=== PATIENT | male | born 1975 | race American Indian/Alaskan Native ===

== ENCOUNTER 2019-07-04 09:35 | Emergency (ER) | payer SELFPAY ==
[2019-07-04 13:29] LABS: Bilirubin,Urine NEG (Negative); Blood,Urine NEG (Negative); Color,Urine Yellow (Yellow); Protein,Urine <15 mg/dL mg/dL (Negative); RBC,Urine < 1.0 /HPF (0.0-6.0); Urobilinogen,Urine < 2.0 mg/dL (<2.0); WBC,Urine < 1.0 /HPF (0.0-6.0)
[2019-07-04 14:22] VITALS: BP 156/98
--- NOTE | 2019-07-04 14:30 | Emergency Department Report ---
ED Back Pain/Injury HPI - General Chief Complaint: High BP Stated Complaint: HBP/RT LEG PAIN Time Seen by Provider: 07/04/19 12:00 Source: patient Limitations: No Limitations - History of Present Illness Initial Comments: 44-year-old [place] male with known past medical history of hypertension presents emergency department complaining of right flank pain which radiates up and down the back for the last 1 week getting worse at sometimes and it fluctuates of fashion. Reports no fever, chills, sweats no hematuria or or dysuria but is very worried about a urinary tract infection. He also ran out of his lisinopril and 60 with a refill of his blood pressure medications. Reports no chest pain or palpitations no nausea or vomiting no headache or blurred blurred vision. He has no chronic history of-year-old urinary issues. He does have diabetes which he states is is doing well as he is compliant with the medication regimen. MD Complaint: back pain - Related Data Previous Rx's Medication Instructions Recorded Last Taken Type hydroCHLOROthiazide [HCTZ] 25 mg PO QDAY #30 tablet 06/18/13 Unknown Rx valACYclovir [Valtrex] 500 mg PO QDAY #30 tab 06/18/13 Unknown Rx Ibuprofen 800 mg PO Q6H PRN #12 tablet 03/04/18 Unknown Rx lisinopriL [Lisinopril] 20 mg PO DAILY #30 tablet 03/04/18 Unknown Rx methOCARBAMOL [Robaxin TAB] 500 mg PO BID #10 tab 03/04/18 Unknown Rx lisinopriL [Zestril TAB] 20 mg PO QDAY #30 tablet 07/04/19 Unknown Rx Allergies Allergy/AdvReac Type Severity Reaction Status Date / Time No Known Allergies Allergy Unverified 06/18/13 17:46 ED Review of Systems ROS: Stated complaint: HBP/RT LEG PAIN Other details as noted in HPI Comment: All other systems reviewed and negative ED Past Medical Hx - Past Medical History Previous Medical History?: Yes Hx Hypertension: Yes Hx Diabetes: Yes Additional medical history: shingles - Surgical History Past Surgical History?: Yes Additional Surgical History: R ankle surgery - Social History Smoking Status: Never Smoker Substance Use Type: None - Medications Home Medications: Home Medications Medication Instructions Recorded Confirmed Last Taken Type hydroCHLOROthiazide [HCTZ] 25 mg PO QDAY #30 tablet 01/30/14 Unknown Rx valACYclovir [Valtrex] 500 mg PO QDAY #30 tab 06/18/13 Unknown Rx Ibuprofen 800 mg PO Q6H PRN #12 tablet 03/04/18 Unknown Rx lisinopriL [Lisinopril] 20 mg PO DAILY #30 tablet 03/04/18 Unknown Rx methOCARBAMOL [Robaxin TAB] 500 mg PO BID #10 tab 03/04/18 Unknown Rx lisinopriL [Zestril TAB] 20 mg PO QDAY #30 tablet 07/04/19 Unknown Rx ED Physical Exam - General Limitations: No Limitations General appearance: alert, in no apparent distress - Head Head exam: Present: atraumatic, normocephalic - Eye Eye exam: Present: normal appearance - ENT ENT exam: Present: mucous membranes moist - Neck Neck exam: Present: normal inspection - Respiratory Respiratory exam: Present: normal lung sounds bilaterally. Absent: respiratory distress - Cardiovascular Cardiovascular Exam: Present: regular rate, normal rhythm. Absent: systolic murmur, diastolic murmur, rubs, gallop - GI/Abdominal GI/Abdominal exam: Present: soft, normal bowel sounds - Rectal Rectal exam: Present: deferred - Extremities Exam Extremities exam: Present: normal inspection - Back Exam Back exam: Present: normal inspection, paraspinal tenderness (To the right flank region where. No CVA tenderness is noted. Straight leg raise is normal normal Gene's test no symptoms when palpating the sacroiliac joint. Full range of motion with flexion extension and axial rotation of the spine) - Neurological Exam Neurological exam: Present: alert, oriented X3, CN II-XII intact, normal gait - Psychiatric Psychiatric exam: Present: normal affect, normal mood - Skin Skin exam: Present: warm, dry, intact, normal color. Absent: rash ED Course Vital Signs 07/04/19 07/04/19 09:38 14:21 Temperature 98.5 F Pulse Rate 68 60 Respiratory 16 20 Rate Blood Pressure 154/102 Blood Pressure 156/98 [Left] O2 Sat by Pulse 100 100 Oximetry Critical care attestation.: If time is entered above; I have spent that time in minutes in the direct care of this critically ill patient, excluding procedure time. ED Disposition Disposition: TO HOME OR SELFCARE Condition: Stable Instructions: Low Back Strain (ED), Hypertension (ED), Flank Pain (ED), Back Pain (ED) Additional Instructions: Urinalysis was normal showing no evidence of any infection or pathology. Please restart your blood pressure medication as we discussed and follow-up with your primary care provider if you are unable to follow-up with her primary care provider follow-up with the providers as listed is imperative that you maintain medication compliance for blood pressure control. Please seek refills in the future with your primary care provider or urgent care Prescriptions: lisinopriL [Zestril TAB] 20 mg PO QDAY #30 tablet Referrals: CRISTIANO VASQUES MD [Staff Physician] - 3-5 Days PRIMARY CARE, [Primary Care Provider] - 3-5 Days
== END 2019-07-04 14:52 | disposition home or self-care (01) ==
LOC: ED 09:35
DX: R10.9 Unspecified abdominal pain (principal); I10 Essential (primary) hypertension; E11.9 Type 2 diabetes mellitus without complications
CPT/HCPCS: 81001; 99283